=== PATIENT | female | born 1955 | race Caucasian/White ===

== ENCOUNTER 2021-07-28 11:07 | Emergency (ER) | payer MEDICARE ==
[~2021-07-28] VITALS: Ht 167.6 cm; Wt 81.7 kg
--- OUTSIDE RECORDS SUMMARY | 2021-07-28 11:10 | XMS ---
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 Marcie has no Care Guidelines for this patient. Allan VISIT COUNT (12 MO.) 1 DESTINEE Rehman TOTAL 1 NOTE: Visits indicate total known visits. ED/UCC VISIT TRACKING (12 MO.) 07/28/2021 11:08 DESTINEE Bee OR TYPE: Emergency COMPLAINT: - FLU SYMPTOMS INPATIENT VISIT TRACKING (12 MO.) No inpatient visits to display in this time frame [email or web address]
[2021-07-28] MEDS ORDERED: VENTOLIN HFA18 GM (12:02)
[2021-07-28] MEDS ORDERED: INSULIN AS100 UNIT/2 SQ (12:02)
[2021-07-28] MEDS ORDERED: METFORMIN HCL500 M1 PO (12:03)
[2021-07-28] MEDS ORDERED: LISINOPRIL-HCT1 EAC2 PO (12:03)
[2021-07-28] MEDS ORDERED: PROPRANOLOL HCL10 MG PO (12:03)
[2021-07-28] MEDS ORDERED: OMEPRAZOLE20 MG PO (12:03)
[2021-07-28] MEDS ORDERED: SERTRALINE HCL100 MG PO (12:03)
[2021-07-28] MEDS ORDERED: ZOLPIDEM TARTRA10 MG PO (12:04)
[2021-07-28] MEDS ORDERED: SYNTHROID175 MCG PO (12:04)
== END 2021-07-28 13:56 | disposition home or self-care (01) ==
LOC: ED 11:07
DX: U07.1 COVID-19 (principal); Z23 Encounter for immunization; Z88.5 Allergy status to narcotic agent; Z88.8 Allergy status to other drugs, medicaments and biological substances; Z79.899 Other long term (current) drug therapy; Z79.4 Long term (current) use of insulin; Z79.84 Long term (current) use of oral hypoglycemic drugs
CPT/HCPCS: 96374; 99283-25